=== PATIENT | female | born 1955 | race Caucasian/White ===

== ENCOUNTER 2018-12-23 07:23 | Day surgery (SDC) | payer BC ==
[~2018-12-23] VITALS: Ht 162.6 cm; Wt 51.3 kg
[~2018-12-23 07:23] MED LIST: LIDOCAINE 2% W/EPIN INJ 20ML **PRES FREE As Ordered ONE; LIDOCAINE 3.5 % 1ML OPHTH TOPICAL GEL OU ONE; MULTCAP PO; TOBRADEX OPHTH OINT 3.5 GM As Ordered ONE
[2018-12-23] MEDS ORDERED: fentaNYL 100 MCG/2 ML INJECTION (J3010) As Ordered ONE (07:45)
[2018-12-23] MEDS ORDERED: MIDAZOLAM INJ 2 MG/2 ML VIAL (J2250) As Ordered ONE (07:45)
[2018-12-23] MEDS ORDERED: POVIDONE-IODINE 5% OPHTH PREP SOL 30ML As Ordered ONE (08:23)
[2018-12-23] MEDS ORDERED: TETRACAINE 0.5% OPHTH SOLN 4ML As Ordered ONE (08:29)
[2018-12-23] MEDS ORDERED: ONDANSETRON 4MG/2ML VIAL (J2405) As Ordered ONE (09:13)
[2018-12-23] MEDS ORDERED: ONDANSETRON 4MG/2ML VIAL (J2405) IV PRN (09:30)
[2018-12-23 09:50] VITALS: BP 102/59
--- NOTE | 2018-12-23 10:55 | RO ---
DATE OF PROCEDURE: 12/23/2018 PREOPERATIVE DIAGNOSIS: Pterygium nasally left eye. POSTOPERATIVE DIAGNOSIS: Pterygium nasally left eye. PROCEDURE PERFORMED: Excision of pterygium left eye with amniotic membrane graft. SURGEON: Leonora Ortega MD LITIGATION MANAGER: ANESTHESIA: Local with sedation. DESCRIPTION OF PROCEDURE: The patient was prepped and draped in usual fashion. The eye was examined. 2% lidocaine with epinephrine was then injected subconjunctivally in the area of the pterygium. The pterygium was then excised from the conjunctiva area and then the head of the pterygium was excised from the cornea using a crescent knife. Any bleeding was controlled using Wet-Field cautery and a alexi bur was used to smooth the corneal surface. Amniotic membrane graft was cut to size, approximately 6 x 8 mm, and then placed onto the sclera tucking underneath the conjunctiva. The graft was glued in place using Tisseel adhesive. Once the adhesive had set, the graft was inline position. TobraDex ointment was applied, and a patch and shield were placed. The patient tolerated this procedure well and went to recovery room in stable condition.
== END 2018-12-23 10:00 | disposition home or self-care (01) ==
LOC: M SDC 07:23
PROVIDERS: ATTEND Ophthalmology
DX: H11.042 Peripheral pterygium, stationary, left eye (principal); Z88.5 Allergy status to narcotic agent
CPT/HCPCS: 65426; A6024; C1762; J2250; J2405; J3010